=== PATIENT | male | born 1975 | race Caucasian/White ===

== ENCOUNTER 2017-08-21 04:55 | Emergency (ER) | payer SELFPAY ==
[~2017-08-21] VITALS: Ht 182.9 cm; Wt 102.0 kg
[2017-08-21 04:58] VITALS: BP 165/90; PULSE 83; RESP 18; TEMP 98.5; O2SAT 97
[2017-08-21] MEDS ORDERED: PENI500T PO (05:11)
[2017-08-21] MEDS ORDERED: MAGICPED SWISH-SPIT (05:11)
[2017-08-21] MEDS ORDERED: CHLO.12%30 SWISH-SPIT (05:11)
[2017-08-21] MEDS ORDERED: PENICILLIN V POTASSIUM 500 MG TAB PO ONE (05:15)
[2017-08-21] MEDS ORDERED: ACETAMINOPHEN/HYDROcodone 325 MG/5 MG TAB PO ONE (05:15)
--- NOTE | 2017-08-21 05:17 | PD ---
HPI Chief Complaint: Oral / Dental Pain or Problem Time Seen by Provider: 05:03 Travel History International Travel<30 days: No Contact w/Intl Traveler<30days: No Traveled to known affect area: No History of Present Illness HPI 42-year-old male presents emergency department for evaluation of tooth pain that started 2 days ago. Says that the tooth began hurting and he has used warm saline rinses and [id number] mouthwash without significant improvement. Says in addition, he is used 800 mg ibuprofen with minimal improvement. His pain is moderate in severity. Says that he has a history of poor dentition and is due to have 5 teeth pulled within a week. Says he has a history of this pain and swelling previously it was given amoxicillin several months ago which seemed to resolve his pain and swelling. Denies radiation of pain, stiff neck, difficulty swallowing, abnormal taste. Denies chronic medical issues or medication use. PFSH Past Medical History Medical History: Denies Significant Hx Diminished Hearing: No Tetanus Vaccination: < 5 Years Influenza Vaccination: No Past Surgical History Tonsillectomy: Yes Social History Alcohol Use: Yes (occsionally) Tobacco Use: No Substance Use: No Allergies-Medications (Allergen,Severity, Reaction): Coded Allergies: No Known Allergies (Unverified , 08/21/17) Review of Systems Except as stated in HPI: all other systems reviewed are Neg Physical Exam Narrative GENERAL: Well-nourished, well-developed patient, in NAD SKIN: Focused skin assessment warm/dry. No rashes or lesions. HEAD: Normocephalic. Atraumatic. EYES: No scleral icterus. No injection or drainage. THROAT: No pharyngeal injection, exudates, or tonsillar hypertrophy. Airway is patent. Poor dentition, multiple erosions and dental caries. Tenderness palpation of the right lower premolar gumline without fluctuance. No exudate. Left lower jaw nontender to palpation without fluctuance. NECK: Supple, trachea midline. No JVD or lymphadenopathy. No meningismus. CARDIOVASCULAR: Regular rate and rhythm without murmurs, gallops, or rubs. RESPIRATORY: Breath sounds equal bilaterally. No accessory muscle use. No wheezes, rales, or rhonchi MUSCULOSKELETAL: No cyanosis, or edema. BACK: Nontender without obvious deformity. No CVA tenderness. Data Data Last Documented VS Vital Signs Date Time Temp Pulse Resp B/P (MAP) Pulse Ox O2 Delivery O2 Flow Rate FiO2 08/21/17 04:58 98.5 83 18 165/90 (115) 97 Orders Orders Acetamin-Hydrocod 325-5 Mg ([place] 5-325 (08/21/17 05:15) Penicillin V Potassium (Veetids) (08/21/17 05:15) MDM Medical Decision Making Medical Screen Exam Complete: Yes Emergency Medical Condition: Yes Differential Diagnosis Dental infection, pulpitis, abscess Narrative Course 6-year-old male presents emergency department for evaluation of bilateral lower jaw tooth pain that is been present for 2 days. Says he has a history of this and was given amoxicillin previously with good relief. Says he is due to have some teeth pulled however, he is in a significant amount of pain and requests evaluation today. He denies fevers or chills. Denies radiation of pain into the neck. Denies difficulty swallowing. Denies neck stiffness. Vital signs are stable. Penicillin and hydrocodone administered in the emergency department today. Patient will be discharged with penicillin, chlorhexidine, and Magic mouthwash. He is advised to follow-up with a dentist as discussed. Follow-up with primary care physician within 2-3 days. Return for worsening or persistent symptoms. Diagnosis Primary Impression: Dental infection Referrals: Dentist Primary Care Physician Patient Instructions: Dental Abscess (ED), General Instructions Additional Instructions: Use the penicillin as prescribed. The Magic mouthwash is for pain control of the mouth. Chlorhexidine is for anti-bacterial properties. Continue ibuprofen as needed for pain. He may continue the warm salt rinses. Follow-up with a dentist as discussed. Follow-up with the primary care physician. Scripts Blnfcpkcvcmjyfr-Vbcpnnfqn-Aqh-Alum-Simeth Liq (Magic Mouthwash Pediatric/Adult Liq) 60 Ml Susp 5 ML SWISH-SPIT ACHS for Mouth sores, #60 ML 0 Refills Each 5mL contains: Diphenydramine 4.5mg, Viscous Lidocaine 2% 10mg, Maalox Advanced Regular Strength 2.7ml Prov: Rajat Kidd MD 08/21/17 Chlorhexidine Gluconate (Mouth) Liq (Chlorhexidine Gluconate (Mouth) Liq) 0.12% Soln 15 ML SWISH-SPIT BID for 7 Days, #210 ML 0 Refills Prov: Rajat Kidd MD 08/21/17 Penicillin V Potassium (Penicillin V Potassium) 500 Mg Tab 500 MG PO Q8H for Infection for 7 Days, #21 TAB 0 Refills Prov: Rajat Kidd MD 08/21/17 Disposition: 01 DISCHARGE HOME Condition: Stable Alberta Bright August 21, 2017 05:17
== END 2017-08-21 05:37 | disposition home or self-care (01) ==
LOC: NEPD 04:55
DX: K04.7 Periapical abscess without sinus (principal)
CPT/HCPCS: 99283